=== PATIENT | male | born 1975 | race Caucasian/White ===

== ENCOUNTER 2023-10-29 10:05 | Emergency (ER) | payer OTHER, SELFPAY ==
[2023-10-29 10:21] VITALS: BP 163/113
--- NOTE | 2023-10-29 10:55 | ED.GENMED ---
History of Present Illness
General
Chief Complaint: Throat Problem
Source: patient
Time Seen by Provider: 10/29/23 10:41
Travel History
Have you had any contact with someone who has COVID-19?: No
Do you have any symptoms of coronavirus? Fever > 100 degrees, chills, cough, shortness of breath, sore throat, loss of taste or smell, muscle aches, or headache?: No
History of Present Illness
History of Present Illness:
48-year-old male with no significant past medical history presenting emergency department for evaluation after waking up around 9:00 today and when attempting to clear his throat he spit up a small blood clot his uvula was swollen and states he has
a feeling in his throat that is continuously scratchy as if he were getting sick. Patient states that his main concern was the spitting up the small blood clot but he otherwise denies any coughing, short, chest pain, pleurisy, lower extremity
edema, abdominal pain or any other concerns. He does note that he has a son who was sick within the last week with a mild URI. He also states that he was outside doing a punch and yard work yesterday and is not sure if this may have irritated his
throat. Patient denies any fevers, chills, rigors. Social history is noncontributory for cigarettes or tobacco or alcohol use. Family history is noncontributory for the immediate family although he does note an aunt had a history of esophageal
cancer.
Past History
Past History
ED Past Medical History: None
ED Past Surgical History: Other (Fistula repair)
Social History
Tobacco: Non-smoker
Alcohol: None
Drug: None
Personal:
Living: with family
Employment: Employed
Review of Systems
Review of Systems
All Other Systems: ROS reviewed and negative except as documented in HPI and ROS
Phy Exam
Physical Exam
Physical Exam:
GENERAL: Alert , in no apparent distress
EYE: conjunctiva clear
NECK: Supple, no significant adenopathy. No thyroid goiter
ENT: Uvula is midline however there is mild to moderate edema with a small vesicles/bullae at the distalmost portion of the uvula, no tonsillar edema or exudate, tolerating oral secretions, no trismus or stridor, mmm.
CARDIAC: Regular rate and rhythm, no murmur
LUNGS: Clear breath sounds bilaterally, no acute respiratory distress, no wheezes/rales/rhonchi
NEUROLOGICAL: Alert and oriented
SKIN: Warm and dry, skin intact.
MUSCULOSKELETAL: well perfused. No edema
PSYCH: Normal and appropriate interaction.
Scores
Heart Failure Risk
Heart Failure Risk Score: Not Applicable
Heart Score for Chest Pain Patients
STEMI patient?: Not applicable
Withdrawal Assessment of Alcohol
Withdrawal Assessment Completed?: Not applicable
Course
Orders/Labs/Results
Orders:
Orders
10/29/23 10:53
Dexamethasone Sod Phosphate [Decadron] 10 mg IV NOW STA
Viscous Lidocaine 2% [Xylocaine Viscous Cup] 15 ml PO NOW STA
10/29/23 10:57
Complete Blood Count/With Diff Urgent
Monotest Urgent
Rapid Strep Group A Urgent
HERIBERTO Source: Throat/Pharynx
Specimen Description:
Date Specimen was Collected: 10/29/23
Time Specimen was Collected: 10:55
10/29/23 10:58
Comprehensive Metabolic Panel Urgent
10/29/23 11:44
COVID-19 Antigen Urgent
Source: Nasal Swab
Abnormal Lab Results
10/29/23 10/29/23
10:57 10:58
MCH 31.9 H pg
(27.0-31.0)
MCHC 37.1 H g/dL
(33.0-37.0)
MPV 10.7 H fL
(7.4-10.4)
Lymphocytes % 18.4 L %
(20.5-51.1)
BUN 27 H mg/dl
(9-20)
Glucose 124 H mg/dl
(70-99)
Total Bilirubin 2.2 H mg/dl
(0.2-1.3)
ALT 53 H U/L
(0-50)
10/29/23 10:57
10/29/23 10:58
Vital Signs
Initial and Last Documented VS:
Initial Vital Signs
Temp Pulse Resp BP Pulse Ox
98.3 F 87 16 163/113 96
10/29/23 10:21 10/29/23 10:21 10/29/23 10:21 10/29/23 10:21 10/29/23 10:21
Last Documented Vital Signs
Temp Pulse Resp BP Pulse Ox
98.3 F 87 16 163/113 96
10/29/23 10:21 10/29/23 10:21 10/29/23 10:21 10/29/23 10:21 10/29/23 10:21
MDM/Problems Addressed
Differential Diagnosis Includes:
Uvulitis, strep, mono, other viral etiology. I did consider PE the patient however given lack of other symptoms and physical exam findings I am not suspicious for this as a diagnosis
MDM/Problems Addressed:
48-year-old male present emergency department for evaluation after he spit up a little bit of blood upon awakening this morning, uvula is edematous and there is a small vesicle/bullae at the distalmost portion however he is tolerating secretions
without any difficulty. Airway remains. Will check labs, strep, mono. Treatment with Decadron and viscous lidocaine. Reassessment following
*Pulse Oximetry
Patient hypoxic: no
*Critical Care Note
Total Time (30-74mins, 75-104mins- exclusive of procedures): Not Applicable
Comment
Comment:
Patient's labs revealed a mildly elevated ALT and total bilirubin. Patient states that this is a chronic issue for him. I did add on a COVID test given his illness however I am not suspicious of this.
Patient Management
Escalation/DeEscalation of care consider admission/obs:
Labs unremarkable. Patient feels better with medications provided. Stable for discharge home. Prescription for Augmentin and Medrol Dosepak sent to pharmacy. Information for ENT provided. Patient aware of the this emergency department.
ED Attending Note
-
Portions of this chart may have been created with voice recognition software.� Occasional wrong word or��sound alike� substitutions may have occurred due to the inherent limitations of voice recognition software.
Discharge Plan
Departure
Patient Disposition: Home (Routine Discharge)
Date of Disposition: 10/29/23
Time of Disposition: 12:17
Patient with high blood pressure during this ER visit?: Yes
Discharge Problem:
Uvulitis
Instructions: Sore Throat, Adult (DC)
Prescriptions:
New
methylprednisolone [Medrol (Mat)] 4 mg tablets,dose pack
4 mg PO DIRECTED Qty: 21 0RF
amoxicillin-pot clavulanate 875-125 mg tablet
1 tab PO BID 10 Days Qty: 20 0RF
Referrals:
Simba Escalante PA-C [Family Provider] -
Yoel Gramajo MD [Active] - (ENT)
Interventions
Interventions:
*Risk Screen - Suicide Last Done: 10/29/23 10:50
*General Assessment Last Done: 10/29/23 10:50
*Neglect/Abuse Screening Last Done: 10/29/23 10:50
*ED COVID-19 Vaccine History Last Done: 10/29/23 10:25
ED-EENT Assessment Last Done: 10/29/23 10:50
ED- Pulmonary Assessment Last Done: 10/29/23 10:50
[2023-10-29] MEDS: DECADRON 10 MG IV (11:03)
[2023-10-29] MEDS: XYLOCAINE VISCOUS CUP 15 ML PO (11:03)
[2023-10-29 11:07] LABS: % Basophils 0.5 % (0-2); % Eosinophils 1.3 % (0-6); % Immature Granulocytes 0.5 % (0-0.5); % Lymphocytes 18.4 % (20.5-51.1); % Monocytes 4.6 % (1.7-9.3); % Neutrophils 74.7 % (42.2-75.2); Absolute Eosinophils 0.1 10^3/uL (0-0.7); Absolute Lymphocytes 1.2 10^3/uL (1.2-3.4); Absolute Monocytes 0.3 10^3/uL (0.1-0.6); Absolute Neutrophils 4.7 10^3/uL (1.4-6.5); Hematocrit 42.6 % (39.0-52.0); Hemoglobin 15.8 g/dL (13.0-18.0); Mean Corp Hgb Conc. 37.1 g/dL (33.0-37.0); Mean Corpuscular Hgb 31.9 pg (27.0-31.0); Mean Corpuscular Volume 85.9 fL (80.0-94.0); Mean Platelet Volume 10.7 fL (7.4-10.4); Nucleated Red Blood Cells % 0 % (-); Platelet Count 145 10^3/uL (130-400); Red Blood Cell Count 4.96 10^6/uL (4.70-6.10); Red Cell Dist. Width 12.8 % (11.5-14.5); White Blood Cell Count 6.3 10^3/uL (4.8-10.8)
[2023-10-29 11:24] LABS: ALT (SGPT) 53 U/L (0-50); AST (SGOT) 25 U/L (17-59); Albumin 4.8 g/dl (3.5-5.0); Alkaline Phosphatase 56 U/L (38-126); Blood Urea Nitrogen 27 mg/dl (9-20); Calcium 9.4 mg/dl (8.4-10.2); Carbon Dioxide 25 mmol/L (22-30); Chloride 104 mmol/L (98-107); Glucose 124 mg/dl (70-99); Potassium 4.1 mmol/L (3.5-5.1); Sodium 139 mmol/L (135-145); Total Bilirubin 2.2 mg/dl (0.2-1.3); Total Protein 7.2 g/dl (6.3-8.2); eGFR > 60.00
[2023-10-29 12:06] LABS: Monotest Negative (Negative)
[2023-10-29 12:13] LABS: COVID-19 Antigen Negative (Negative)
[2023-10-29 12:30] VITALS: BP 150/99
== END 2023-10-29 12:31 | disposition home or self-care (01) ==
LOC: EMR 10:05
PROVIDERS: Physician Assistant Medical; EMERGENCY PHYSICIAN Emergency Medicine; FAMILY PHYSICIAN Physician Assistant Medical
DX: K12.2 Cellulitis and abscess of mouth (principal)
CPT/HCPCS: 99283; 80053; 85025; 86308; 87070; 87811; 87880